=== PATIENT | male | born 1975 | race Caucasian/White ===

== ENCOUNTER 2020-08-12 14:57 | Emergency (ER) | payer BC ==
[~2020-08-12] VITALS: Ht 167.6 cm; Wt 73.9 kg
[~2020-08-12 14:57] MED LIST: COLACE100 MG ORAL; NAPROSYN500 M1 ORAL; NORCO 5-325 TA1 EACH ORAL
[2020-08-12] MEDS ORDERED: Ketorolac 30mg Inj ONE (15:47)
[2020-08-12] MEDS ORDERED: Ketorolac 30mg Inj IV ONE (16:00)
--- NOTE | 2020-08-12 16:00 | NUR ---
CAME TO ER COMPLAINTS of right flank pain since morning denies any nausea or vomiting
[2020-08-12 16:20] LABS: BASOPHILS % (AUTO) 0.8 % (0.0-2.0); HEMATOCRIT 47.3 % (42.0-52.0); HEMOGLOBIN 16.3 G/DL (14.2-18.0); LYMPHOCYTES % (AUTO) 16.1 % (20.0-45.0); MEAN CORPUSCULAR VOLUME 91 FL (80-99); MONOCYTES % (AUTO) 6.9 % (1.0-10.0); NEUTROPHILS % (AUTO) 75.2 % (45.0-75.0); PLATELET COUNT 326 K/UL (150-450); RED BLOOD COUNT 5.21 M/UL (4.70-6.10); WHITE BLOOD COUNT 13.6 K/UL (4.8-10.8)
[2020-08-12 16:24] LABS: ANION GAP 7 mmol/L (5-15); BLOOD UREA NITROGEN 11 mg/dL (7-18); CALCIUM 11.8 MG/DL (8.5-10.1); CARBON DIOXIDE 32 MMOL/L (21-32); CHLORIDE 103 MMOL/L (98-107); CREATININE 1.1 MG/DL (0.55-1.30); POTASSIUM 3.7 MMOL/L (3.5-5.1); SODIUM 142 MMOL/L (136-145)
[2020-08-12 16:26] LABS: BILIRUBIN, URINE NEGATIVE (NEGATIVE); GLUCOSE, URINE (UA) NEGATIVE (NEGATIVE); KETONES,URINE 1+ (NEGATIVE); LEUKOCYTE ESTERASE ,URINE NEGATIVE (NEGATIVE); NITRITE,URINE NEGATIVE (NEGATIVE); PH,URINE 6 (4.5-8.0); PROTEIN,URINE NEGATIVE (NEGATIVE); UROBILINOGEN,URINE NORMAL MG/DL (0.0-1.0)
[2020-08-12] MEDS ORDERED: Morphine Sulfate 2mg/ml Inj(IV/IM USE ONLY) IVP ONE (16:30)
--- NOTE | 2020-08-12 16:30 | NUR ---
pain meds given as orderd waiting to go for ct scan
[2020-08-12 16:40] LABS: ALANINE AMINOTRANSFERASE 45 U/L (12-78); ALBUMIN 4.8 G/DL (3.4-5.0); ALBUMIN/GLOBULIN RATIO 1.4 (1.0-2.7); ALKALINE PHOSPHATASE 95 U/L (46-116); ASPARTATE AMINO TRANSFERASE 28 U/L (15-37); BILIRUBIN,TOTAL 1.6 MG/DL (0.2-1.0); CREATINE KINASE 63 U/L (26-308)
[2020-08-12 16:41] LABS: BILIRUBIN,DIRECT 0.3 MG/DL (0.0-0.3)
[2020-08-12 16:46] LABS: APPEARANCE,URINE SLIGHTLY CLOUDY; COLOR,URINE YELLOW
[2020-08-12 17:01] VITALS: BP 155/70
--- NOTE | 2020-08-12 17:04 | NUR ---
less pain now 08/[address] scan via [facility]
--- NOTE | 2020-08-12 17:42 | Diagnostic Imaging Report ---
EXAM: CT Abdomen and Pelvis Without Intravenous Contrast CLINICAL HISTORY: PAIN TECHNIQUE: Axial computed tomography images of the abdomen and pelvis without intravenous contrast. CTDI is 5.7 mGy and DLP is 310.7 mGy-cm. One or more of the following dose reduction techniques were used: automated exposure control, adjustment of the mA and/or kV according to patient size, use of iterative reconstruction technique. COMPARISON: No relevant prior studies available. FINDINGS: Lung bases: Mild bilateral atelectasis. ABDOMEN: Liver: No significant abnormality. Gallbladder and bile ducts: Cholecystectomy. Pancreas: No significant abnormality. Spleen: No significant abnormality. Adrenals: No significant abnormality. Kidneys and ureters: 2 mm distal right ureteral calculus near the ureterovesicular junction. Mild right hydroureteronephrosis, periureteral stranding, and delayed nephrogram. Stomach and bowel: Postsurgical changes are present in the cecum. Bowel is nondilated. PELVIS: Appendix: No findings to suggest acute appendicitis. Bladder: The underdistended urinary bladder is not well evaluated. Reproductive: Unremarkable as visualized. ABDOMEN and PELVIS: Intraperitoneal space: No significant abnormality. No free air. Bones/joints: No acute fracture or malalignment. Soft tissues: Fat-containing right inguinal hernia. Vasculature: No significant abnormality. No abdominal aortic aneurysm. Lymph nodes: No significant abnormality. IMPRESSION: 2 mm distal right ureteral calculus near the ureterovesicular junction. Mild right hydroureteronephrosis, periureteral stranding, and delayed nephrogram.
--- NOTE | 2020-08-12 17:43 | Diagnostic Imaging Report ---
EXAM: CT Abdomen and Pelvis With Intravenous Contrast CLINICAL HISTORY: PAIN TECHNIQUE: Axial computed tomography images of the abdomen and pelvis with intravenous contrast. CTDI is 11.4 mGy and DLP is 621.4 mGy-cm. One or more of the following dose reduction techniques were used: automated exposure control, adjustment of the mA and/or kV according to patient size, use of iterative reconstruction technique. COMPARISON: No relevant prior studies available. FINDINGS: Lung bases: Mild dependent atelectasis. ABDOMEN: Liver: No significant abnormality. Gallbladder and bile ducts: Cholecystectomy. Pancreas: No significant abnormality. Spleen: No significant abnormality. Adrenals: No significant abnormality. Kidneys and ureters: 2 mm distal right ureteral calculus near the ureterovesicular junction. Mild right hydroureteronephrosis, periureteral stranding, and delayed nephrogram. Subcentimeter foci of hypoattenuation in the left kidney are too small to characterize. Stomach and bowel: Postsurgical changes are present in the cecum. Bowel is nondilated. PELVIS: Appendix: No findings to suggest acute appendicitis. Bladder: The underdistended urinary bladder is not well evaluated. Reproductive: Unremarkable as visualized. ABDOMEN and PELVIS: Intraperitoneal space: No significant abnormality. No free air. Bones/joints: No acute fracture or malalignment. Soft tissues: Fat-containing right inguinal hernia. Vasculature: No significant abnormality. No abdominal aortic aneurysm. Lymph nodes: No significant abnormality. IMPRESSION: 2 mm distal right ureteral calculus near the ureterovesicular junction. Mild right hydroureteronephrosis, periureteral stranding, and delayed nephrogram.
--- NOTE | 2020-08-12 17:52 | Emergency Room Report ---
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 Denies hematuria however complains of urinary frequency and urgency. Denies dysuria. Reports that the pain started while he was sitting at his desk earlier today. Denies any strenuous physical activity or fall. Denies nausea, vomiting, diarrhea however complains of feeling chills. Appears to be afebrile. Has not taken medication for symptom relief. Also reports that has a history of right-sided inguinal hernia which is reducible. No signs of incarceration noted. Denies chest pain, shortness of breath, headache and dizziness. Denies penile discharge. Denies scrotal pain. Allergies: Coded Allergies: No Known Allergies (Unverified , 08/12/20) COVID-19 Screening Contact w/high risk pt: No Experienced COVID-19 symptoms?: No COVID-19 Testing performed AROMATHERAPIST: No Patient History Past Medical History: see triage record Past Surgical History: none Pertinent Family History: none Immunizations: UTD Reviewed Nursing Documentation: PMH: Agreed; PSxH: Agreed Nursing Documentation-PMH Past Medical History: No Stated History Hx Gastrointestinal Problems: Yes - IBS Review of Systems All Other Systems: negative except mentioned in HPI Physical Exam Vital Signs Date Time Temp Pulse Resp B/P (MAP) Pulse Ox O2 Delivery O2 Flow Rate FiO2 08/12/20 15:29 98.1 96 18 155/70 (98) 99 Room Air Sp02 EP Interpretation: reviewed, normal General Appearance: alert, GCS 15, non-toxic, mild distress Head: normocephalic, atraumatic Eyes: bilateral eye normal inspection, bilateral eye PERRL ENT: hearing grossly normal, normal voice Neck: supple Respiratory: lungs clear, no rhonchi, no respiratory distress, no retraction, no accessory muscle use Cardiovascular #1: no edema, no gallop, no murmur Gastrointestinal: non tender, no mass, no organomegaly, no peritonitis, no bruit, non-distended, no guarding, no pulsatile mass, no rebound, other - Negative McBurney's, negative Rovsing's, no signs of incarceration noted no signs of strangulation of hernia noted Rectal: deferred Genitourinary: no CVA tenderness Musculoskeletal: back normal Neurologic: alert, motor strength/tone normal, oriented x3, sensory intact, responsive, speech normal Psychiatric: judgement/insight normal, memory normal, mood/affect normal, no suicidal/homicidal ideation Skin: no rash Lymphatic: no adenopathy Medical Decision Making PA Attestation All diagnoses and treatment plans were reviewed and discussed with my supervising physician Dr. Braswell Diagnostic Impression: Primary Impression: Renal stone ER Course 44-year-old male with history of hypercalcemia secondary to parathyroid gland removal here complaining of sudden onset of right flank pain rating a 10 out of 10 with radiation to suprapubic. Denies hematuria however complains of urinary frequency and urgency. Denies dysuria. Reports that the pain started while he was sitting at his desk earlier today. Denies any strenuous physical activity or fall. Denies nausea, vomiting, diarrhea however complains of feeling chills. Appears to be afebrile. Has not taken medication for symptom relief. Also reports that has a history of right-sided inguinal hernia which is reducible. No signs of incarceration noted. Denies chest pain, shortness of breath, headache and dizziness. Denies penile discharge. Denies scrotal pain. Ddx considered but are not limited to: UTI, pyelonephritis, obstructive renal stone, nonobstructing renal stone, urinary incontinence, prolapsed bladder, appendicitis, nonreducible inguinal hernia, strangulation or incarceration of inguinal hernia, Vital signs: are WNL, pt. is afebrile H&PE are most consistent with: Renal stone nonobstructive, no hydronephrosis noted slight hydroureteronephrosis ORDERS: UA, urine cx, CBC, CMP, lipase, CK, CT abdomen pelvis with and without contrast to rule out renal stone versus appendicitis versus complication strangulation of hernia, versus pyelonephritis, tamsulosin, Keflex ED INTERVENTIONS: Toradol, NS bolus, morphine DISCHARGE: At this time pt. is stable for d/c to home. Will provide printed patient care instructions, and any necessary prescriptions. Care plan and follow up instructions have been discussed with the patient prior to discharge. Take medication as directed, follow-up with urologist, if worsening symptoms return to the emergency room CT/MRI/US Diagnostic Results CT/MRI/US Diagnostic Results #1: Imaging Test Ordered: CT abdomen pelvis with contrast Impression FINDINGS: Lung bases: Mild dependent atelectasis. ABDOMEN: Liver: No significant abnormality. Gallbladder and bile ducts: Cholecystectomy. Pancreas: No significant abnormality. Spleen: No significant abnormality. Adrenals: No significant abnormality. Kidneys and ureters: 2 mm distal right ureteral calculus near the ureterovesic ular junction. Mild right hydroureteronephrosis, periureteral stranding, and delayed nephrogram. Subcentimeter foci of hypoattenuation in the left kidney are too small to characterize. Stomach and bowel: Postsurgical changes are present in the cecum. Bowel is nondilated. PELVIS: Appendix: No findings to suggest acute appendicitis. Bladder: The underdistended urinary bladder is not well evaluated. Reproductive: Unremarkable as visualized. ABDOMEN and PELVIS: Intraperitoneal space: No significant abnormality. No free air. Bones/joints: No acute fracture or malalignment. Soft tissues: Fat-containing right inguinal hernia. Vasculature: No significant abnormality. No abdominal aortic aneurysm. Lymph nodes: No significant abnormality. IMPRESSION: 2 mm distal right ureteral calculus near the ureterovesicular junction. Mild right hydroureteronephrosis, periureteral stranding, and delayed nephrogram. CT/MRI/US Diagnostic Results #2: Imaging Test Ordered: CT abdomen pelvis without contrast Impression COMPARISON: No relevant prior studies available. FINDINGS: Lung bases: Mild bilateral atelectasis. ABDOMEN: Liver: No significant abnormality. Gallbladder and bile ducts: Cholecystectomy. Pancreas: No significant abnormality. Spleen: No significant abnormality. Adrenals: No significant abnormality. Kidneys and ureters: 2 mm distal right ureteral calculus near the ureterovesicular junction. Mild right hydroureteronephrosis, periureteral stranding, and delayed nephrogram. Stomach and bowel: Postsurgical changes are present in the cecum. Bowel is nondilated. PELVIS: Appendix: No findings to suggest acute appendicitis. Bladder: The underdistended urinary bladder is not well evaluated. Reproductive: Unremarkable as visualized. ABDOMEN and PELVIS: Intraperitoneal space: No significant abnormality. No free air. Bones/joints: No acute fracture or malalignment. Soft tissues: Fat-containing right inguinal hernia. Vasculature: No significant abnormality. No abdominal aortic aneurysm. Lymph nodes: No significant abnormality. IMPRESSION: 2 mm distal right ureteral calculus near the ureterovesicular junction. Mild right hydroureteronephrosis, periureteral stranding, and delayed nephrogram. Last Vital Signs Date Time Temp Pulse Resp B/P (MAP) Pulse Ox O2 Delivery O2 Flow Rate FiO2 08/12/20 17:01 98.1 18 155/70 99 Room Air 08/12/20 16:59 96 Disposition: HOME, SELF-CARE Condition: Stable Scripts Tamsulosin HCl (Flomax) 0.4 Mg Cap.er.24h 0.4 MG ORAL DAILY for BPH, #20 CAP Prov: Diego Cronin 08/12/20 Cephalexin* (KEFLEX*) 500 Mg Capsule 500 MG ORAL EVERY 12 HOURS for 7 Days, #14 CAP 0 Refills Prov: Diego Cronin 08/12/20 Referrals: [facility],REFERRING (PCP) Patient Instructions: Renal Colic, [id number] Additional Instructions: Take medication as directed, increase oral hydration, follow-up with primary care provider or urologist, if worsening symptoms return to the emergency room Diego Cronin Aug 12, 2020 17:52
[2020-08-12] MEDS ORDERED: CEPHALEXIN500 MG ORAL (17:57)
[2020-08-12] MEDS ORDERED: FLOMAX0.4 MG ORAL (17:57)
[2020-08-12 18:06] VITALS: BP 155/70
--- NOTE | 2020-08-12 18:07 | NUR ---
IV DCD DISCHARGED HOME WITH INSTRUCTION AND RX FOLLOW UP WITH PMD
== END 2020-08-12 18:08 | disposition home or self-care (01) ==
LOC: EMR 16:21
DX: N13.2 Hydronephrosis with renal and ureteral calculous obstruction (principal); Z90.49 Acquired absence of other specified parts of digestive tract; K40.90 Unilateral inguinal hernia, without obstruction or gangrene, not specified as recurrent
CPT/HCPCS: 36415; 74176; 74177; 80053; 80307; 81003; 82248; 82550; 83690; 85025; 96361; 96374; 96375; 99284; J1885; J2270; J2405; J7030; Q9965